=== PATIENT | male | born 1985 | race Caucasian/White ===

== ENCOUNTER 2021-11-18 02:28 | Emergency (ER) | payer MEDICAID ==
[~2021-11-18] VITALS: Ht 170.2 cm; Wt 102.5 kg
[2021-11-18] MEDS ORDERED: LIDO20SO16 PO (03:15)
[2021-11-18 04:22] VITALS: BP 107/96
[2021-11-18] MEDS ORDERED: LIDOcaine 1% W/epiNEPHrine 1:200,000 10ml vial IJ ONE (05:35)
== END 2021-11-18 04:25 | disposition home or self-care (01) ==
LOC: ER 02:29
DX: B34.9 Viral infection, unspecified (principal); Z20.822 Contact with and (suspected) exposure to COVID-19; Z79.899 Other long term (current) drug therapy; R59.0 Localized enlarged lymph nodes
CPT/HCPCS: 87635; 99283; C9803

== ENCOUNTER 2022-02-09 21:46 | Emergency (ER) | payer MEDICAID ==
[~2022-02-09] VITALS: Ht 170.2 cm; Wt 111.4 kg
[~2022-02-09 21:46] MED LIST: LIDO20SO16 PO
[2022-02-09 21:51] VITALS: BP 154/99
== END 2022-02-10 00:53 | disposition left against medical advice (07) ==
LOC: ER 21:47
DX: R51.9 Headache, unspecified (principal); Z53.21 Procedure and treatment not carried out due to patient leaving prior to being seen by health care provider